=== PATIENT | male | born 1955 | race Caucasian/White ===

== ENCOUNTER 2016-11-10 10:16 | Emergency (ER) | payer OTHER ==
[~2016-11-10] VITALS: Ht 170.1 cm; Wt 83.9 kg
[2016-11-10] MEDS ORDERED: CEPHALEXIN500 M1 PO (11:36)
== END 2016-11-10 11:48 | disposition home or self-care (01) ==
LOC: ED 10:16
DX: S61.411A Laceration without foreign body of right hand, initial encounter (principal); Z29.12 Encounter for prophylactic antivenin; F17.200 Nicotine dependence, unspecified, uncomplicated; W29.0XXA Contact with powered kitchen appliance, initial encounter; Y93.89 Activity, other specified; Y92.9 Unspecified place or not applicable; Y99.9 Unspecified external cause status